=== PATIENT | male | born 1990 | race Caucasian/White ===

== ENCOUNTER 2018-04-02 11:04 | Emergency (ER) | payer SELFPAY ==
[2018-04-02 11:10] VITALS: BP 125/76
--- NOTE | 2018-04-02 11:24 | EDPHY ---
H & P Stated Complaint: L groin pain since yesterday Source: Patient Exam Limitations: No limitations - Medical/Surgical History Hx Asthma: No Hx Chronic Respiratory Disease: No Hx Diabetes: No Hx Cardiac Disease: No Hx Renal Disease: No Hx Cirrhosis: No Hx Alcoholism: No Hx HIV/AIDS: No Hx Splenectomy or Spleen Trauma: No Other PMH: denies - Social History Smoking Status: Never smoked Time Seen by Provider: 04/02/18 11:23 HPI/ROS: HPI: This is a 27-year-old male who presents with Chief Complaint: Left groin pain since yesterday Location: Left groin Quality: Pain Duration: Since yesterday Signs and Symptoms: no fever, no nausea, no vomiting, no hematemesis, no blood in stool, no abdominal bloating, no diarrhea, no back pain, no urinary symptoms , no testicular pain, no indigestion, no chest pain, no shortness of breath Timing: Acute, constant Severity: [id number] Context: Patient is generally healthy, climbs up ladders into [employer] frequently for his job, presents with complaints of left groin pain that started yesterday while at work. Reports that even lifting his leg to put his pants on this morning cause pain in his left groin area. He denies any concern for STDs. He has no penile discharge, testicular swelling, testicular pain. No prior history of inguinal hernias. He denies any bulging in his groin area. He has not had any heavy lifting. He went to urgent care and was advised to go to the emergency room to obtain an ultrasound to evaluate for testicular torsion. Modifying Factors: None Comment: ROS: A comprehensive 10 system review of systems is otherwise negative aside from elements mentioned in the history of present illness. MEDICAL/SURGICAL/SOCIAL HISTORY: Medical history: Generally healthy. Does not take any regular medications. Surgical history: Denies Social history: Never smoked. Family history noncontributory. CONSTITUTIONAL: Polite and cooperative nontoxic-appearing young adult white male, awake and alert, no obvious distress HEENT: Atraumatic and normocephalic, PERRL, EOMI. Nares patent; no rhinorrhea; no nasal mucosal edema. Tympanic membranes clear. Oropharynx clear, no exudate and moist pink mucosa. Airway patent. No lymphadenopathy. No meningismus. Cardiovascular: Normal S1/S2, regular rate, regular rhythm, without murmur rub or gallop. PULMONARY/CHEST: Symmetrical and nontender. Clear to auscultation bilaterally. Good air movement. No accessory muscle usage. ABDOMEN: Soft, nondistended, nontender, no rebound, no guarding, no peritoneal signs, no masses or organomegaly. No CVAT. Male : circumcised penis, bilateral descended testes, no testicular swelling, no testicular masses, no penile discharge, no lesions, negative Prehn's sign. Exam was performed with a leather goods i assembler at bedside. PELVIC: Reproducible pain in the left groin muscles but no obvious bulge; no pain with rocking; bilateral hips flexion 125 degrees, extension 30 degrees, with no pain internal rotation and no pain external rotation. EXTREMITIES: 2/2 pulses, strength 5/5, no deformities, no clubbing, no cyanosis or edema. NEUROLOGICAL: no focal neuro deficits. GCS 15. SKIN: Warm and dry, no erythema. no rash. Good capillary refill. (Smitha Suazo) Constitutional: Initial Vital Signs Temperature (C) 36.4 C 04/02/18 11:08 Heart Rate 52 L 04/02/18 11:08 Respiratory Rate 16 04/02/18 11:08 Blood Pressure 125/76 H 04/02/18 11:08 O2 Sat (%) 97 04/02/18 11:08 O2 Delivery Mode Room Air Allergies/Adverse Reactions: No Known Allergies Allergy (Unverified 04/02/18 11:07) Home Medications: Medication Instructions Recorded Albuterol 04/02/18 oxyCODONE/APAP 5/325 [Percocet 1 - 2 tab PO Q4H PRN #10 tab 04/02/18 5/325 (*)] Medical Decision Making ED Course/Re-evaluation: Patient has no urinary symptoms or penile discharge and will not obtain a GC per patient request. Testicular ultrasound ordered Suspect groin strain and advised supportive care 1233: Called by radiologist, who advised that testicular ultrasound shows no acute abnormality including no torsion. There is small volume which is consistent with hypogonadism Will refer to endocrinology No signs of neurovascular compromise/tenting of skin/compartment syndrome/ extremities and joints examined above and below area of concern and are neurovascularly intact. This patient was seen under the supervision of my secondary supervising physician. I evaluated care for this patient independently. Discussed this patient with Dr. Bonilla who did not see the patient. (Smitha Suazo) The patient was evaluated and managed by the physician assistant merchandise manager. I have reviewed this chart and I agree with the findings and plan of care as documented , as indicated by my signature. I am the secondary supervising physician. ( Virginie Bonilla) Differential Diagnosis: Differential diagnosis includes but is not limited to testicular torsion, gonorrhea, chlamydia, epididymitis, orchitis, inguinal hernia, incarceration, groin strain. (Smitha Suazo) Departure - Departure Disposition: Home, Routine, Self-Care Clinical Impression: Strain of left inguinal muscle, Hypogonadism in male Condition: Good Instructions: Groin Strain (ED) Additional Instructions: Take Tylenol 650 mg every 4 hours and/or Ibuprofen 600 mg every 8 hours with food as needed for pain. Use Percocet every 6 hours as needed for severe/break through pain. Do not use Tylenol and Percocet concomitantly. Apply ice for 30 minutes at a time; 2-3 times per day for the next 1-2 days. Please avoid any heavy lifting greater than 10 lb until all symptoms have resolved. Follow up with [facility]/PCP in 5-7 days if symptoms persist at which time they will evaluate and recommend with you if conservative management versus further imaging is indicated. Follow-up with Endocrinology in the next 1-2 weeks to discuss hypogonadism and further evaluation. Referrals: [facility],. [Clinic] - As per Instructions Kayleigh Lutz MD [[facility] [place] Primary Care Provider] - As per Instructions Prescriptions: oxyCODONE/APAP 5/325 [Percocet 5/325 (*)] 1 - 2 tab PO Q4H PRN #10 tab PRN Reason: Pain, Severe
== END 2018-04-02 12:42 | disposition home or self-care (01) ==
DX: S76.212A Strain of adductor muscle, fascia and tendon of left thigh, initial encounter (principal); E29.1 Testicular hypofunction; X50.1XXA Overexertion from prolonged static or awkward postures, initial encounter; Y92.9 Unspecified place or not applicable; Y93.9 Activity, unspecified; Y99.9 Unspecified external cause status